=== PATIENT | female | born 1955 | race Caucasian/White ===

== ENCOUNTER 2018-01-09 07:33 | Day surgery (SDC) | payer OTHER ==
[~2018-01-09] VITALS: Ht 160 cm; Wt 93.7 kg
[2018-01-09] VITALS (12 sets, daily range): BP systolic 112–131; BP diastolic 63–88; PULSE 68–89; TEMP 97.6
[2018-01-09 08:13] LABS: HEMATOCRIT 48.3 % (37.0-47.0); MEAN CELL VOLUME 94 fl (80.0-100.0); MEAN CORPUSCULAR HEMOGLOBIN 31 pg (27.0-31.0); MEAN CORPUSCULAR HGB CONC 33 g/dl (33.0-37.0); MEAN PLATELET VOLUME 10.3 fl (7.4-10.4); PLATELET COUNT 199 K/mm3 (130-400); RED BLOOD COUNT 5.16 M/mm3 (4.10-5.30); REDCELL DISTRIBUTION WIDTH-CV 13.9 % (11.5-14.5)
[2018-01-09 08:20] LABS: INR 1.1 (0.8-3.0); PROTHROMBIN TIME 12.6 SECONDS (9.7-12.8)
[2018-01-09 08:34] LABS: CALCIUM 9.6 mg/dL (8.4-10.2); CREATININE, serum 0.72 mg/dL (0.52-1.25); POTASSIUM 4.1 mmol/L (3.4-5.0)
[2018-01-09] MEDS ORDERED: MELAT3MGTAB PO (08:41)
[2018-01-09] MEDS ORDERED: CYMBALTA 30MG30 MG PO (08:41)
[2018-01-09] MEDS ORDERED: IMODIUM 2MG CAPS2 MG PO (08:41)
[2018-01-09] MEDS ORDERED: DITROPAN XL10 MG PO (08:42)
[2018-01-09] MEDS ORDERED: GLUCOPHAGE500 MG/TAB PO (08:42)
[2018-01-09] MEDS ORDERED: COREG 3.123.125 MG/T PO (08:47)
[2018-01-09] MEDS ORDERED: ASPIRIN 81M81 MG/TA2 PO (08:50)
[2018-01-09] MEDS ORDERED: PRINIVIL5 MG PO (10:55)
[2018-01-09] MEDS ORDERED: LIPITOR 40MG TA40 MG PO (11:03)
== END 2018-01-09 15:50 | disposition home or self-care (01) ==
LOC: COL.CAR 07:33
PROVIDERS: Internal Medicine Cardiovascular Disease
DX: I25.10 Atherosclerotic heart disease of native coronary artery without angina pectoris (principal); R94.39 Abnormal result of other cardiovascular function study; I27.20 Pulmonary hypertension, unspecified; I08.1 Rheumatic disorders of both mitral and tricuspid valves; G47.33 Obstructive sleep apnea (adult) (pediatric); E11.42 Type 2 diabetes mellitus with diabetic polyneuropathy; F32.9 Major depressive disorder, single episode, unspecified; K21.9 Gastro-esophageal reflux disease without esophagitis; E78.5 Hyperlipidemia, unspecified; Z88.1 Allergy status to other antibiotic agents; Z88.8 Allergy status to other drugs, medicaments and biological substances; Z79.84 Long term (current) use of oral hypoglycemic drugs; Z87.891 Personal history of nicotine dependence; Z80.0 Family history of malignant neoplasm of digestive organs; Z83.3 Family history of diabetes mellitus; Z79.82 Long term (current) use of aspirin
CPT/HCPCS: C1760; C1769; C1894; J2250; J3010; Q9967